=== PATIENT | male | born 1990 | race Caucasian/White ===

== ENCOUNTER 2018-12-27 02:02 | Emergency (ER) | payer BC ==
[2018-12-27] MEDS ORDERED: Ketorolac 60 MG/2 ML SDV IM ONE (02:27)
--- NOTE | 2018-12-27 02:35 | EDM.PDOC ---
ED HPI GENERAL MEDICAL PROBLEM - General Chief Complaint: ENT Problem Stated Complaint: TOOTHACHE Time Seen by Provider: 12/27/18 02:20 Source of Information: Reports: Patient - History of Present Illness INITIAL COMMENTS - FREE TEXT/NARRATIVE: This patient presents to the ED for evaluation of tooth pain. He states it began 24 hours ago. He took ibuprofen once at 1700 on 12/26/18 but "it still hurts." He denies fever, dental trauma, other concerns or complaints. Onset: Sudden Onset Date: 12/26/18 Onset Time: 02:00 Duration: Constant Location: Reports: Other (mouth) Quality: Reports: Ache Improves with: Reports: None Worsens with: Reports: None Associated Symptoms: Reports: No Other Symptoms Treatments [employer]: Reports: NSAIDS Left Tooth/Teeth Pain Score (Numeric/FACES): 8 - Related Data Allergies Allergy/AdvReac Type Severity Reaction Status Date / Time No Known Allergies Allergy Verified 12/27/18 02:10 Home Meds: Home Meds NK [No Known Home Meds] 12/27/18 [History] ED ROS ENT - Review of Systems Review Of Systems: ROS reveals no pertinent complaints other than HPI. HEENT: Reports: Dental Pain ED EXAM, ENT - Physical Exam Exam: See Below Exam Limited By: No Limitations General Appearance: Alert, WD/WN Eye Exam: Bilateral Eye: PERRL Ears: Normal External Exam Nose: Normal Inspection Mouth/Throat: Normal Inspection, Dental Pain, Other (Tooth 17: tenderness with touch, no erythema, swelling, or evidence of trauam.) Head: Atraumatic, Normocephalic Neck: Normal Inspection Respiratory/Chest: No Respiratory Distress, No Accessory Muscle Use Course - Vital Signs Last Recorded V/S: Last Vital Signs Temp 37.0 C 12/27/18 02:12 Pulse 77 12/27/18 02:12 Resp 16 12/27/18 02:12 BP 147/90 H 12/27/18 02:12 Pulse Ox 99 12/27/18 02:12 - Orders/Labs/Meds Meds: Medications Discontinued Medications Generic Name Dose Route Start Last Admin Trade Name Freq PRN Reason Stop Dose Admin Ketorolac Tromethamine 60 mg 12/27/18 02:27 Toradol IM 12/27/18 02:28 ONETIME ONE - Re-Assessments/Exams Free Text/Narrative Re-Assessment/Exam: 12/27/18 02:35 This patient presents for evaluation of dental pain as detailed above. Evaluation today showed tooth 17 was acutely tender to percussion. There is no evidence of surrounding abscess. There is no evidence of deep space infection of the neck or any sepsis-like syndrome. Patient was given Toradol in the ED for pain control and instructed to use ibuprofen or Tylenol regularly until he can be evaluated by a dentist. The patient was strongly advised to seek dental care as soon as possible. I discussed with the patient that these medications did not represent definitive care for a dental infection and definitive care by a dentist is needed. The patient is aware that I am not a dentist and that we do not refill pain medications in the ED. Patient was also given a dental resource sheet. The patient will return to the emergency department for fever, uncontrolled pain, inability to tolerate PO, or onset of facial swelling. The patient expressed understanding. Departure - Departure Time of Disposition: 02:40 Disposition: Home, Self-Care 01 Condition: Good Clinical Impression: Pain, dental - Discharge Information *PRESCRIPTION DRUG MONITORING PROGRAM REVIEWED*: Yes *COPY OF PRESCRIPTION DRUG MONITORING REPORT IN PATIENT GIORGIO: No Forms: ED Department Discharge Additional Instructions: Schedule an appointment with the dentist as soon as possible. Keep taking Ibuprofen. May alternate with Tylenol. Toradol given at 2:30am. No Ibuprofen or Aleve for 6 hours.
== END 2018-12-27 02:45 | disposition home or self-care (01) ==
LOC: LB.ED 02:02
DX: K08.89 Other specified disorders of teeth and supporting structures (principal)
CPT/HCPCS: 96372; 99282; J1885